=== PATIENT | female | born 1950 | race Caucasian/White ===

== ENCOUNTER → 2016-07-01 | Outpatient (CLI) | payer OTHER ==
--- NOTE | 2016-07-01 18:43 | DX ---
DEXA Bone Mineral Densitometry Clinical Indications: Screening. No family history. Comparison: Baseline. Technique: Bone Mineral Densitometry (BMD) by Dual Energy X-Ray Absorptiometry (DEXA) was performed utilizing the [employer] scanner. The lumbar spine was evaluated in the AP projection. The left forearm were evaluated in the AP projection. Hips were not assessed because of prior surgery. AP Lumbar Spine: The L1, L2, L3 and L4 vertebral bodies are evaluated. BMD: 1.45 gm/cm2 T-score: 2.1 SD Z-score: 4 SD AP left Forearm: BMD: 0.8 gm/cm2 T-score: -0.9 SD Z-score: 0.7 SD Vertebral Fracture Assessment: No significant fracture deformity Conclusion: Considering the lowest measured site, patient is normal. Any bone loss in this patient is probably related to aging or estrogen deficiency. Recommendations: To prevent osteoporosis and to promote bone density, consider the following recommendations: 1. Pursue a regular regimen of weightbearing and muscle strengthening exercises in order to reduce t he risk of falls and fracture (as tolerated by the patient's general medical condition). 2. Ensure that total daily dietary calcium intake is maximized. 3. Check serum hydroxy vitamin D3 (normal >30ng/ml). 4. Ensure daily intake of vitamin D is 800 international units. 5. Consider follow-up DEXA scan in two years to assess the rate of bone loss in this patient. 6. Consider excluding common secondary causes of bone loss. Laboratory evaluation might include CBC , TSH, calcium, phosphorous, albumin, creatinine, alkaline phosphatase, PTH, serum, electrophoresis ( SPEP or UPEP), and antitissue transglutaminase antibody levels (celiac disease), and hydroxy vitamin D3, as well as a 24-hour urine calcium.
== END ==
LOC: BRMIMAGING 11:18
PROVIDERS: ATTEND Nurse Practitioner
DX: Z13.820 Encounter for screening for osteoporosis (principal)

== ENCOUNTER → 2017-01-20 | Outpatient (CLI) | payer OTHER | LOC: CIMAGING 12:17 | PROVIDERS: ATTEND Internal Medicine | DX: Z12.31 Encounter for screening mammogram for malignant neoplasm of breast (principal) | CPT/HCPCS: G0202 ==

== ENCOUNTER → 2017-06-30 | Outpatient (CLI) | payer OTHER | LOC: CIMAGING 12:16 | PROVIDERS: ATTEND Nurse Practitioner | DX: R05 Cough (principal); J84.10 Pulmonary fibrosis, unspecified; Z87.891 Personal history of nicotine dependence; Z80.1 Family history of malignant neoplasm of trachea, bronchus and lung | CPT/HCPCS: 71046-PO ==

== ENCOUNTER → 2018-01-31 | Outpatient (CLI) | payer OTHER | LOC: CIMAGING 14:46 | PROVIDERS: ATTEND Nurse Practitioner | DX: Z12.31 Encounter for screening mammogram for malignant neoplasm of breast (principal); Z85.3 Personal history of malignant neoplasm of breast ==

== ENCOUNTER → 2018-02-15 | Outpatient (CLI) | payer OTHER | LOC: CIMAGING 12:46 | PROVIDERS: ATTEND Nurse Practitioner | DX: N63.20 Unspecified lump in the left breast, unspecified quadrant (principal); Z86.000 Personal history of in-situ neoplasm of breast | CPT/HCPCS: 76641-PO ==

== ENCOUNTER → 2018-03-13 | Outpatient (CLI) | payer OTHER ==
[~2018-03-13] MED LIST: GADOBUTROL 10 ML VIAL IVP ONE
== END ==
LOC: FIMAGING 12:36
PROVIDERS: ATTEND Nurse Practitioner
DX: N63.20 Unspecified lump in the left breast, unspecified quadrant (principal); N63.10 Unspecified lump in the right breast, unspecified quadrant; Z85.3 Personal history of malignant neoplasm of breast
CPT/HCPCS: 0159T; A9585; C8908; 82565-PO

== ENCOUNTER → 2018-03-27 | Outpatient (CLI) | payer OTHER | LOC: CIMAGING 13:40 | PROVIDERS: ATTEND Nurse Practitioner | DX: R92.8 Other abnormal and inconclusive findings on diagnostic imaging of breast (principal); Z85.3 Personal history of malignant neoplasm of breast | CPT/HCPCS: 76641-PO ==

== ENCOUNTER → 2018-03-28 | Outpatient (CLI) | payer OTHER | LOC: FIMAGING 12:59 | PROVIDERS: ATTEND Nurse Practitioner | DX: N64.59 Other signs and symptoms in breast (principal); Z85.3 Personal history of malignant neoplasm of breast ==

== ENCOUNTER → 2018-08-15 | Outpatient (CLI) | payer OTHER | LOC: FIMAGING 10:52 | PROVIDERS: ATTEND Physician Assistant | DX: S72.425A Nondisplaced fracture of lateral condyle of left femur, initial encounter for closed fracture (principal); S80.11XA Contusion of right lower leg, initial encounter ==